=== PATIENT | female | born 1960 | race Caucasian/White ===

== ENCOUNTER 2023-01-14 15:10 | Emergency (ER) | payer OTHER ==
[~2023-01-14] VITALS: Ht 152.4 cm; Wt 63.5 kg
[2023-01-14 15:28] LABS: HEMATOCRIT 38.7 % (31.2-41.9); MEAN CORPUSCULAR HEMOGLOBIN 30.1 uug (24.7-32.8); MEAN CORPUSCULAR VOLUME 90.7 fL (75.5-95.3); PLATELET COUNT (AUTO) 270 K/uL (179-408)
--- NOTE | 2023-01-14 15:41 | NUR ---
PT IS IN ROOM #2A. DR MCMILLAN EVALUATED THE PT.
[2023-01-14 15:54] LABS: CARBON DIOXIDE 28 mmol/L (21-32); CHLORIDE 102 mmol/L (98-107); CREATININE 0.6 mg/dL (0.6-1.3); GLUCOSE 159 mg/dL (74-106); POTASSIUM 3.6 mmol/L (3.5-5.1); UREA NITROGEN, BLOOD 10 mg/dL (7-18)
[2023-01-14 16:06] LABS: ALANINE AMINOTRANSFERASE 20 U/L (14-59); ALKALINE PHOSPHATASE 78 U/L (50-136); ASPARTATE AMINOTRANSFERASE 8 U/L (15-37); BILIRUBIN,DIRECT < 0.1 mg/dL (0.0-0.2); BILIRUBIN,TOTAL 0.2 mg/dL (0.2-1.0); TOTAL PROTEIN, SERUM 7.2 g/dL (6.4-8.2)
[2023-01-14 16:26] LABS: ETHANOL < 3 MG/DL (0-0)
[2023-01-14 16:34] LABS: ACETAMINOPHEN < 2.0 ug/mL (10-30)
[2023-01-14 19:35] LABS: *BILIRUBIN,URIN NEGATIVE (NEGATIVE); *BLOOD, URINE NEGATIVE (NEGATIVE); *CLARITY,URINE CLEAR (CLEAR); *COLOR,URINE YELLOW (YELLOW); *KETONES,URINE NEGATIVE (NEGATIVE); LEUKOCYTE ESTERASE ,URINE 1+ (NEGATIVE); NITRITE, URINE NEGATIVE (NEGATIVE); UGLUCOSE NEGATIVE (NEGATIVE)
[2023-01-14 19:42] LABS: RBC,URINE 0-3 /HPF (0-3)
[2023-01-14 19:49] LABS: *AMPHETAMINE, URINE NEGATIVE (NEGATIVE); *CANNABINOID, URINE POSITIVE (NEGATIVE); *COCCAINE, URINE NEGATIVE (NEGATIVE); *PHENCYCLIDINE SCREEN,URINE NEGATIVE (NEGATIVE)
--- NOTE | 2023-01-14 20:53 | NUR ---
Patient discharged to home in stable condition. Written and verbal after care instructions given. Patient verbalizes understanding of instructions. Stressed follow up or return to ER for worsening s/s. Patient is a/ox4, NAD noted, patient ambulated with steady gait, accompanied by her son
[2023-01-14 20:54] VITALS: BP 124/71
== END 2023-01-14 20:55 | disposition home or self-care (01) ==
LOC: ER 15:10
DX: T50.991A Poisoning by other drugs, medicaments and biological substances, accidental (unintentional), initial encounter (principal); Y92.89 Other specified places as the place of occurrence of the external cause
CPT/HCPCS: 36415; 85025; A4663; G0480